=== PATIENT | male | born 1990 | race Caucasian/White ===

== ENCOUNTER 2017-07-08 13:07 | Emergency (ER) | payer SELFPAY ==
[~2017-07-08] VITALS: Ht 188 cm; Wt 100.0 kg
[~2017-07-08 13:07] MED LIST: ADVAIR 5001 DISK W/D IH; ALBUTEROL17 GM INH; AMOXICILLIN875 MG PO; AUGMENTIN; CELEXA40 MG PO; DEPAKOTE PO; DEPRESSION PILL PO; EXCEDRIN MIGRAI1 TAB PO; PROMETHAZINE25 MG PO; VERAMYST10 GM NS; WELLBUTRIN SR100 MG PO; ZOFRAN ODT4 MG/UDTAB PO
== END 2017-07-08 14:10 ==
LOC: EDMED → EDBD 13:07 → EDMED 13:07
DX: R55 Syncope and collapse (principal); F41.9 Anxiety disorder, unspecified; F17.200 Nicotine dependence, unspecified, uncomplicated